=== PATIENT | female | born 1955 | race Caucasian/White ===

== ENCOUNTER → 2016-04-22 | Outpatient (CLI) | payer MEDICARE, SELFPAY | DX: F17.210 Nicotine dependence, cigarettes, uncomplicated (principal) | CPT/HCPCS: 72040; G0297 ==

== ENCOUNTER → 2016-06-01 | Outpatient (CLI) | payer MEDICARE | LOC: EMI 07:27 | DX: M54.16 Radiculopathy, lumbar region (principal) | CPT/HCPCS: 72148 ==

== ENCOUNTER 2020-02-28 13:10 | Emergency (ER) | payer OTHER ==
[~2020-02-28 13:10] MED LIST: ASPIRIN CHEWABL81 MG PO; ELAVIL 10 MG TA10 MG PO; LIPITOR TAB 1010 MG PO; LORTAB 5-325 M1 EACH PO; LYRICA100 MG PO; MIRALAX17 GM PO; NAPROSYN500 MG PO; OMEPRAZOLE20 MG PO; REQUIP2 MG PO
[2020-02-28] MEDS ORDERED: MOBIC15 MG PO (17:15)
== END 2020-02-28 17:25 | disposition home or self-care (01) ==
LOC: ER1 13:10 → EDBD 13:10 → ER1 17:25
DX: S09.90XA Unspecified injury of head, initial encounter (principal); S16.1XXA Strain of muscle, fascia and tendon at neck level, initial encounter; S30.0XXA Contusion of lower back and pelvis, initial encounter; S70.01XA Contusion of right hip, initial encounter; E11.9 Type 2 diabetes mellitus without complications; K21.9 Gastro-esophageal reflux disease without esophagitis; F17.200 Nicotine dependence, unspecified, uncomplicated; Z79.84 Long term (current) use of oral hypoglycemic drugs; Z79.899 Other long term (current) drug therapy; W06.XXXA Fall from bed, initial encounter; Y92.009 Unspecified place in unspecified non-institutional (private) residence as the place of occurrence of the external cause
CPT/HCPCS: 70450; 72100; 72125; 73502; 99284

== ENCOUNTER → 2020-07-25 | Outpatient (CLI) | payer OTHER ==
[~2020-07-25] MED LIST changes: +MOBIC15 MG PO
== END ==
LOC: KOH-I 13:37 → EDBD 13:37 → KOH-I 13:45
DX: M54.08 Panniculitis affecting regions of neck and back, sacral and sacrococcygeal region (principal)
CPT/HCPCS: 72148